=== PATIENT | male | born 1955 | race Caucasian/White ===

== ENCOUNTER 2021-04-13 03:16 | Day surgery (SDC) | payer MEDICARE, SELFPAY ==
[2021-04-06 14:58] VITALS: BMI 24.5
[2021-04-13 08:10] VITALS: BP 140/74; PULSE 58; RESP 18; TEMP 36.1; O2SAT 100; BMI 23.4
[2021-04-13] MEDS: LACTATED RINGERS 1,000 ML 150 ML IV CONT (08:24)
--- NOTE | 2021-04-13 08:53 | PM.HPGS ---
History of Present Illness History of Present Illness Consent: Risks, benefits, and alternatives have been discussed and questions answered. Patient agrees to proceed with procedure. Chief complaint: hx of colon polyps Narrative: Dharmesh Vyas is a 65 year old male referred for colon cancer screening. He has a history of polyps for Review of Systems Review of Systems: All systems reviewed & are unremarkable except as noted in HPI and below PMFSH Social History Social History Smoking status: Never smoker Alcohol intake: current Drinks per week: 15 Living arrangements: alone Spiritual care concerns: No Meds Home Medications and Allergies Home Medications Medication Instructions Recorded Confirmed Type Total Restore 1 cap PO DAILY 04/06/21 04/13/21 History ascorbic acid (vitamin C) [Vitamin 500 mg PO DAILY 04/06/21 04/13/21 History C] buspirone 7.5 mg PO BID 04/06/21 04/13/21 History carbidopa-levodopa 1 tablet PO QID 04/06/21 04/13/21 History cholecalciferol (vitamin D3) 100 mcg PO DAILY 04/06/21 04/13/21 History sertraline 100 mg PO DAILY 04/06/21 04/13/21 History Allergies Allergy/AdvReac Type Severity Reaction Status Date / Time Penicillins Allergy Mild Rash Verified 04/13/21 08:08 lisinopril AdvReac Cough Verified 04/13/21 08:08 Vital Signs Vital Signs - 24 hr 04/13/21 08:10 Temperature 36.1 C L Pulse Rate 58 L Respiratory Rate 18 Blood Pressure 140/74 Pulse Oximetry 100 Exam Resp: Auscultation: clear to auscultation bilaterally Cardio: Rate: regular rate Rhythm: regular rhythm GI: GI Palp: Yes Soft to palpation and No Tenderness to palpation present (GI) Assessment and Plan Assessment and plan (1) Colon cancer screening: Code(s): Z12.11 - Encounter for screening for malignant neoplasm of colon Status: Acute Assessment and Plan: Colonoscopy with possible biopsy or polypectomy or cautery or injection of substances.
--- NOTE | 2021-04-13 09:10 | P.PNAN_ITS ---
Anes - Initial Pre Proc Eval Procedure: Operation Date: 04/13/21 09:30 Proposed Procedures p Screening Colonoscopy - Masoud Zhu MD Date/Time: 04/13/21 09:10 Surgeon: Masoud Zhu MD Pre Op Diagnosis: hx of colon polyps Patient Data Age: 65 Gender: M Height: 1.8 m Weight: 76.3 kg Last Vital Signs Temp 96.9 F L 04/13/21 08:10 Pulse 58 L 04/13/21 08:10 Resp 18 04/13/21 08:10 BP 140/74 04/13/21 08:10 Pulse Ox 100 04/13/21 08:10 Allergies Allergy/AdvReac Type Severity Reaction Status Date / Time Penicillins Allergy Mild Rash Verified 04/13/21 08:08 lisinopril AdvReac Cough Verified 04/13/21 08:08 Home Medications Medication Instructions Recorded Confirmed Type Total Restore 1 cap PO DAILY 04/06/21 04/13/21 History ascorbic acid (vitamin C) [Vitamin 500 mg PO DAILY 04/06/21 04/13/21 History C] buspirone 7.5 mg PO BID 04/06/21 04/13/21 History carbidopa-levodopa 1 tablet PO QID 04/06/21 04/13/21 History cholecalciferol (vitamin D3) 100 mcg PO DAILY 04/06/21 04/13/21 History sertraline 100 mg PO DAILY 04/06/21 04/13/21 History Patient hx anesthesia problems: none Family hx anesthesia problems: none [facility] Past Medical History Medical History (Updated 04/13/21 @ 09:05 by Adonis Mckeon MD) Anxiety REY (obstructive sleep apnea) Parkinson disease Social History Social History Smoking status: Never smoker Alcohol intake: current Drinks per week: 15 Living arrangements: alone Spiritual care concerns: No Anes - Eval Final PreProcedure Day of Procedure 04/13/21 09:10 Patient weight: overweight Heart: regular rate and rhythm Lungs: clear to auscultation Airway: Mallampati scale class II Neurological: alert and oriented Last oral intake: >/= 8 hours ASA classification: III Emergent: no Anesthetic plan: proceed Anesthesia type and monitoring: general GIVS and standard monitoring Informed Consent: The patient's anesthetic plan and its attendant risks and benefits were discussed with the patient/family/POA. Questions were solicited and answers provided to the satisfaction of the patient/family/POA.
[2021-04-13 09:53] VITALS: BP 98/47; PULSE 49; RESP 18; O2SAT 97
[2021-04-13 10:03] VITALS: BP 92/69; PULSE 52; RESP 23; O2SAT 95
[2021-04-13 10:13] VITALS: BP 117/70; PULSE 47; RESP 21; O2SAT 100
== END 2021-04-13 10:28 | disposition home or self-care (01) ==
PROVIDERS: PCP Nurse Practitioner Family; Visit Provider Internal Medicine Gastroenterology
PROC: 0DJD8ZZ Inspection of Lower Intestinal Tract, Via Natural or Artificial Opening Endoscopic (ICD-10-PCS; CPT 45378; principal; 2021-04-13 09:30)
DX: Z12.11 Encounter for screening for malignant neoplasm of colon (principal); K57.30 Diverticulosis of large intestine without perforation or abscess without bleeding; G20 Parkinson's disease; G47.33 Obstructive sleep apnea (adult) (pediatric); F41.9 Anxiety disorder, unspecified
CPT/HCPCS: G0121; J7120

== ENCOUNTER 2023-08-16 14:18 | Emergency (ER) | payer MEDICARE, SELFPAY ==
[2023-08-16 15:23] VITALS: BP 144/79; PULSE 95; RESP 18; TEMP 37; O2SAT 100
--- NOTE | 2023-08-16 16:14 | ED.URI ---
HPI - URI/Sore Throat General Chief Complaint: Upper Respiratory Infection Stated Complaint: bilateral eye irritation,sorethroat Time Seen by Provider: 08/16/23 15:30 Source: patient Mode of arrival: ambulatory Limitations: no limitations History of Present Illness HPI Narrative: Dharmesh is a 68-year-old male patient presenting to the clinic today with complaints of bilateral eye irritation, sore throat, nasal congestion, and cough times 2-3 days. He reports that the bilateral irritation started this morning. Woke up with his eyes glued shut with yellowish white discharge. MD elicited complaint: cough, sore throat, nasal congestion and other (Conjunctivitis) Related Data Home Medications Medication Instructions Recorded Confirmed Total Restore 1 cap PO DAILY 04/06/21 04/13/21 ascorbic acid (vitamin C) 500 mg 500 mg PO DAILY 04/06/21 04/13/21 tablet (Vitamin C) buspirone 7.5 mg tablet 7.5 mg PO BID 04/06/21 04/13/21 carbidopa 25 mg-levodopa 100 mg 1 tablet PO QID 04/06/21 04/13/21 tablet cholecalciferol (vitamin D3) 100 100 mcg PO DAILY 04/06/21 04/13/21 mcg (4,000 unit) capsule sertraline 100 mg tablet 100 mg PO DAILY 04/06/21 04/13/21 Allergies Allergy/AdvReac Type Severity Reaction Status Date / Time Penicillins Allergy Mild Rash Verified 04/13/21 08:08 lisinopril AdvReac Cough Verified 04/13/21 08:08 Review of Systems Review of Systems: Pertinent positives per HPI. Patient denies any fever, chills, rash, headache, visual changes, dizziness, shortness of breath, chest pain, palpitations, nausea, vomiting, diarrhea, constipation, abdominal pain, or any urinary issues. [facility] Past Medical History Medical History Anxiety REY (obstructive sleep apnea) Parkinson disease Social History Social History Smoking status: Never smoker Alcohol intake: current Drinks per week: 15 Living arrangements: alone Spiritual care concerns: No Comments At the time of my signature, I reviewed and agree with the nursing past medical, surgical, social, and family history. There is no relevant family history pertinent to the patient complaint. Exam Narrative: General: Well-developed, well nourished, in no apparent distress Head: Normocephalic, atraumatic Eyes: Pupils equally round and reactive to light bilaterally, EOM intact, sclera and conjunctive injected with watery discharge, mild lids swelling Ears: TMs intact and clear, ear canals clear, no drainage, grossly hearing normal. Nose: Nares patent, clear nasal discharge, no inflammation, no sinus tenderness. Mouth: Oral pharynx red without lesions or masses, good dentition, MMM. Neck: Supple, trachea midline, no enlargement of anterior or posterior cervical nodes, no thyroid masses or goiter palpable. Cardio: Regular rate and rhythm, s1 and s2 normal, no murmur appreciated. Resp: Clear to auscultation bilaterally, no rhonchi, rales, wheezing or rubs Course Course Emergency Course: Portions of this record may have been created with voice recognition software. Level of Care: Express Care Visit Vital Signs Vital signs: Vital Signs Temperature 37.0 C 08/16/23 15:23 Pulse Rate 95 08/16/23 15:23 Respiratory Rate 18 08/16/23 15:23 Blood Pressure 144/79 H 08/16/23 15:23 Pulse Oximetry 100 08/16/23 15:23 Oxygen Delivery Room Air 08/16/23 15:23 Temperature 37.0 C 08/16/23 15:23 Pulse Rate 95 08/16/23 15:23 Respiratory Rate 18 08/16/23 15:23 Blood Pressure 144/79 H 08/16/23 15:23 Pulse Oximetry 100 08/16/23 15:23 Oxygen Delivery Room Air 08/16/23 15:23 Vital signs reviewed MDM - URI/Sore Throat MDM Narrative Medical decision making narrative: At the time of visit patient is resting comfortably on the exam table. Patient appears to be nontoxic. COVID, influenza, and strep test were pe
== END 2023-08-16 16:20 | disposition home or self-care (01) ==
PROVIDERS: Emergency Provider Nurse Practitioner Family; PCP Nurse Practitioner Family
DX: J06.9 Acute upper respiratory infection, unspecified (principal); B34.9 Viral infection, unspecified; H10.33 Unspecified acute conjunctivitis, bilateral; G20.A1 Parkinson's disease without dyskinesia, without mention of fluctuations; Z20.822 Contact with and (suspected) exposure to COVID-19
CPT/HCPCS: 87081; 87426; 87804; 87880; 99213; C9803; G0463